=== PATIENT | male | born 1960 | race Caucasian/White ===

== ENCOUNTER 2016-07-21 01:50 | Emergency (ER) | payer OTHER ==
[~2016-07-21] VITALS: Ht 162.6 cm; Wt 63.0 kg
[~2016-07-21 01:50] MED LIST: FLEXERIL10 MG PO; IBUPROFEN600 MG PO; ULTRAM50 MG PO; no home med
[2016-07-21] MEDS ORDERED: NAPROSYN500 MG PO (02:31)
[2016-07-21 02:40] VITALS: BP 138/78
== END 2016-07-21 02:42 | disposition home or self-care (01) ==
LOC: EME 01:50 → EXP 01:50
PROC: 3E0234Z Introduction of Serum, Toxoid and Vaccine into Muscle, Percutaneous Approach (ICD-10-PCS; principal; 2016-07-21)
DX: S60.051A Contusion of right little finger without damage to nail, initial encounter (principal); W23.0XXA Caught, crushed, jammed, or pinched between moving objects, initial encounter; S60.512A Abrasion of left hand, initial encounter; S60.511A Abrasion of right hand, initial encounter; W45.8XXA Other foreign body or object entering through skin, initial encounter; F17.200 Nicotine dependence, unspecified, uncomplicated
CPT/HCPCS: 73140; 99281; 99284

== ENCOUNTER 2017-02-24 20:10 | Inpatient (IN) | payer OTHER ==
[~2017-02-24] VITALS: Ht 162.6 cm; Wt 52.5 kg
[~2017-02-24 20:10] MED LIST changes: +NAPROSYN500 MG PO
[2017-02-24 20:37] LABS: HEMATOCRIT 40.6 % (38.0-50.0); HEMOGLOBIN 14.7 G/DL (12.5-16.6); MCH 31.8 PG (29.0-34.0); MCHC 36.2 G/DL (30.0-36.0); MCV 87.9 FL (86-99); PLATELET COUNT 123 K/uL (156-360); RBC DIS.WIDTH-CV 12.5 % (11.8-14.6); RBC DIS.WIDTH-SD 39.8 % (39-53); RED BLOOD COUNT 4.62 M/uL (4.00-5.50); WHITE BLOOD COUNT 12.8 K/uL (4.1-10.2)
[2017-02-24 20:45] LABS: ALBUMIN 4.6 g/dL (3.2-4.8); CHLORIDE 96 mEq/L (99-109); POTASSIUM 4.1 mEq/L (3.7-5.4); SODIUM 137 mEq/L (136-147)
[2017-02-24 20:47] LABS: GLUCOSE 158 mg/dL (70-99)
[2017-02-24 20:48] LABS: TOTAL PROTEIN 7.9 g/dL (6.4-8.3)
[2017-02-24 20:49] LABS: TOTAL BILIRUBIN 1.9 mg/dL (0.0-1.0)
[2017-02-24 20:50] LABS: SERUM ETHYL ALCOHOL < 10 mg/dL
[2017-02-24 20:51] LABS: ALKALINE PHOSPHATASE 100 IU/L (3-129); GFR ESTIMATE (CALCULATED) > 59 mL/min/ (58.99-99999)
[2017-02-24 20:52] LABS: UREA NITROGEN (BUN) 18 mg/dL (9-23)
[2017-02-24 20:53] LABS: AST (GOT) 219 IU/L (2-34)
[2017-02-24 20:54] LABS: ALT (GPT) 255 IU/L (3-49)
[2017-02-24 22:31] LABS: LIPASE 44 U/L (1.0-51.0)
[2017-02-24 23:02] LABS: PTT 25.5 SEC (25-37)
[2017-02-25 02:47] VITALS: BP 182/94
[2017-02-25 04:00] VITALS: BP 172/79
[2017-02-25 05:34] LABS: APPEARANCE CLEAR ((CLEAR)); BILIRUBIN NEGATIVE; BLOOD MODERATE; COLOR YELLOW ((YELLOW)); GLUCOSE (STRIP) NEGATIVE; KETONES 80; LEUKOCYTES NEGATIVE; NITRITE NEGATIVE; PROTEIN (STRIP) 100; UROBILINOGEN 0.2 MG/DL (0.2-1.0)
[2017-02-25 06:04] LABS: SPECIFIC GRAVITY 1.067 (1.000-1.030)
[2017-02-25 06:06] LABS: BACTERIA NONE SEEN /HPF; EPITHELIAL CELLS RARE /HPF; MUCUS TRACE /LPF; RED BLOOD CELLS 0-5 /HPF (0-5); UCUL ADDED? NO; WHITE BLOOD CELLS 0-5 /HPF (0-5)
[2017-02-25 06:43] LABS: HEMATOCRIT 35.2 % (38.0-50.0); MCH 31.4 PG (29.0-34.0); MCHC 34.7 G/DL (30.0-36.0); MCV 90.5 FL (86-99); PLATELET COUNT 98 K/uL (156-360); RBC DIS.WIDTH-CV 12.7 % (11.8-14.6); RBC DIS.WIDTH-SD 42.3 % (39-53); RED BLOOD COUNT 3.89 M/uL (4.00-5.50); WHITE BLOOD COUNT 11.5 K/uL (4.1-10.2)
[2017-02-25 06:46] LABS: HEMOGLOBIN 12.2 G/DL (12.5-16.6)
[2017-02-25 07:01] VITALS: BP 165/79
[2017-02-25 08:21] LABS: ALBUMIN 3.8 G/DL (3.2-4.8); CHLORIDE 107 MEQ/L (99-109); POTASSIUM 3.9 MEQ/L (3.7-5.4); TOTAL BILIRUBIN 1.4 MG/DL (0.0-1.0)
[2017-02-25 08:22] LABS: SODIUM 144 MEQ/L (136-147)
[2017-02-25 08:27] LABS: ALKALINE PHOSPHATASE 74 IU/L (3-129); ALT (GPT) 236 IU/L (3-49); AST (GOT) 302 IU/L (2-34); CREATININE 0.8 MG/DL (0.6-1.3); GFR ESTIMATE (CALCULATED) > 59 mL/min/ (58.99-99999); GLUCOSE 99 mg/dL (70-99); TOTAL PROTEIN 5.8 G/DL (6.4-8.3); UREA NITROGEN (BUN) 16 mg/dL (9-23)
[2017-02-25 10:30] LABS: ANTI-HEPATITIS A VIRUS (IGM) Nonreactive; HEPATITIS B SURFACE ANTIGEN Nonreactive; HEPATITIS C ANTIBODY Nonreactive
[2017-02-25 10:32] LABS: ANTI-HEPATITIS B CORE (IGM) Nonreactive
[2017-02-25 11:08] VITALS: BP 154/73
[2017-02-25 11:49] LABS: TROP-I INTERPRETATION NEGATIVE; TROPONIN-I 0.21 ng/mL (0.0-0.30)
[2017-02-25 15:12] VITALS: BP 161/80
[2017-02-25 19:37] VITALS: BP 144/72
[2017-02-26] VITALS (7 sets, daily range): BP systolic 133–171; BP diastolic 67–81
[2017-02-26 03:03] LABS: HEMOGLOBIN 11.6 G/DL (12.5-16.6); MCH 31.9 PG (29.0-34.0); MCHC 35.2 G/DL (30.0-36.0); MCV 90.7 FL (86-99); RBC DIS.WIDTH-SD 43.2 % (39-53); RED BLOOD COUNT 3.64 M/uL (4.00-5.50); WHITE BLOOD COUNT 17.4 K/uL (4.1-10.2)
[2017-02-26 03:20] LABS: CHLORIDE 100 mEq/L (99-109); POTASSIUM 3.6 mEq/L (3.7-5.4)
[2017-02-26 03:21] LABS: SODIUM 132 mEq/L (136-147)
[2017-02-26 03:22] LABS: GLUCOSE 78 mg/dL (70-99)
[2017-02-26 03:26] LABS: CREATININE 0.6 mg/dL (0.6-1.3); GFR ESTIMATE (CALCULATED) > 59 mL/min/ (58.99-99999)
[2017-02-26 03:27] LABS: UREA NITROGEN (BUN) 12 mg/dL (9-23)
[2017-02-26 04:07] LABS: HEMATOLOGY COMMENT 1 SN; PLAT.SUFFICIENCY DECREASED; PLATELET COUNT UNABLE TO REPORT K/uL (156-360)
[2017-02-26 04:22] LABS: HDL CHOLESTEROL 66 MG/DL (Desirable>=40); LDL CHOLESTEROL 61 mg/dL (Desirable<100); NON-HDL CHOLESTEROL 78 mg/dL (Desirable<160); TOTAL CHOLESTEROL 144 mg/dL (Desirable<200); TRIGLYCERIDES 84 MG/DL (Normal: <150)
[2017-02-26 07:12] LABS: Estimated Average Glucose 103 mg/dL (70-123); HEMOGLOBIN A1c (GLYCOHEMOGLOB) 5.2 % HGB (Below 5.7)
[2017-02-26 08:47] LABS: HEMATOCRIT 33.3 % (38.0-50.0); HEMOGLOBIN 11.1 G/DL (12.5-16.6); MCH 30.5 PG (29.0-34.0); MCHC 33.3 G/DL (30.0-36.0); MCV 91.5 FL (86-99); RBC DIS.WIDTH-SD 43.6 % (39-53); RED BLOOD COUNT 3.64 M/uL (4.00-5.50)
[2017-02-26 08:53] LABS: PLATELET COUNT 56 K/uL (156-360)
[2017-02-27 07:22] LABS: HEMATOCRIT 30.7 % (38.0-50.0); HEMOGLOBIN 10.6 G/DL (12.5-16.6); MCH 31.3 PG (29.0-34.0); MCHC 34.5 G/DL (30.0-36.0); MCV 90.6 FL (86-99); RBC DIS.WIDTH-CV 12.7 % (11.8-14.6); RBC DIS.WIDTH-SD 41.8 % (39-53); RED BLOOD COUNT 3.39 M/uL (4.00-5.50); WHITE BLOOD COUNT 11.8 K/uL (4.1-10.2)
[2017-02-27 07:49] LABS: IMM.PLATELET FRACTION 7.8 (1-7); PLAT.SUFFICIENCY VERY DECREASED; PLATELET COUNT 42 K/uL (156-360)
[2017-02-27 07:52] LABS: CHLORIDE 99 MEQ/L (99-109); CREATININE 0.6 MG/DL (0.6-1.3); GFR ESTIMATE (CALCULATED) > 59 mL/min/ (58.99-99999); GLUCOSE 82 mg/dL (70-99); POTASSIUM 3.3 MEQ/L (3.7-5.4); SODIUM 136 MEQ/L (136-147); UREA NITROGEN (BUN) 8 mg/dL (9-23)
[2017-02-27 08:03] VITALS: BP 186/98
[2017-02-27 13:07] LABS: Heparin Induced Plt Ab Negative (Negative)
[2017-02-27] MEDS ORDERED: ASPIR-LOW81 MG PO (14:28)
[2017-02-27] MEDS ORDERED: TYLENOL REGULA325 MG PO (14:28)
[2017-02-27] MEDS ORDERED: PERCOCET 5/31 TABLET PO (14:28)
[2017-02-27] MEDS ORDERED: ZOFRAN4 MG PO (14:29)
[2017-02-27] MEDS ORDERED: PANTOPRAZOLE SO40 MG PO (14:29)
[2017-02-27] MEDS ORDERED: COLACE100 MG PO (14:30)
[2017-02-27 15:50] VITALS: BP 129/70
[2017-02-27 16:38] LABS: UFH SRA Result Negative (Negative)
[2017-03-04 18:04] LABS: ACTIVATED PROTEIN C RESIST+ 4.9 ratio (>=2.1); ANTITHROMBIN III ACTIVITY+ 55 (80-120); DRVVT Mixing Study Interp Not Indicated (()); FACTOR VIII ACTIVITY+ 253 % (50-180); PROTEIN C FUNCTIONAL ACTIVITY+ 48 % (70-180); PTT-LA 99 sec (<=40); Protein S, Free 138 % normal (57-171); Thrombosis Consult Level Limited (()); dRVVT Screen 33 sec (<=45)
== END 2017-02-27 18:15 | disposition home or self-care (01) | DRG 699 ==
LOC: EME 20:10 → EDOF 02-25 00:57 → 5SOUTH 02-25 00:57 → ENRESERV 02-25 01:08 → 5SOUTH 02-25 02:39
PROVIDERS: Emergency Medicine; Hospitalist; Internal Medicine; Internal Medicine Hematology & Oncology; Physician Assistant Medical
DX: N28.0 Ischemia and infarction of kidney (principal); I74.9 Embolism and thrombosis of unspecified artery; F10.20 Alcohol dependence, uncomplicated; D69.59 Other secondary thrombocytopenia; E87.2 Acidosis; E83.39 Other disorders of phosphorus metabolism; F17.200 Nicotine dependence, unspecified, uncomplicated; Z68.1 Body mass index [BMI] 19.9 or less, adult; J98.11 Atelectasis; E87.1 Hypo-osmolality and hyponatremia; E87.6 Hypokalemia; I73.9 Peripheral vascular disease, unspecified; Z80.3 Family history of malignant neoplasm of breast; Z82.49 Family history of ischemic heart disease and other diseases of the circulatory system; Z90.49 Acquired absence of other specified parts of digestive tract
CPT/HCPCS: 71045; 74177; 80048; 80053; 80061; 80074; 81003; 81240 90; 83036; 83090 90; 83690; 84484; 85027; 85240 90; 85300 90; 85303 90; 85305 90; 85306 90; 85610; 85613 90; 85730; 85730 90; 86022 90; 86146 90; 86147 90; 99281; 99284; G0480; J1170; J2270; J2405; J7030

== ENCOUNTER 2017-10-09 12:15 | Emergency (ER) | payer OTHER ==
[~2017-10-09] VITALS: Ht 162.6 cm; Wt 56.3 kg
[~2017-10-09 12:15] MED LIST changes: +ASPIR-LOW81 MG PO; +COLACE100 MG PO; +PANTOPRAZOLE SO40 MG PO; +PERCOCET 5/31 TABLET PO; +TYLENOL REGULA325 MG PO; +ZOFRAN4 MG PO
[2017-10-09 18:30] VITALS: BP 168/97
== END 2017-10-09 18:37 | disposition home or self-care (01) ==
LOC: RME 12:15 → EME 12:15 → RME 18:37
PROC: 0H9EXZZ Drainage of Left Lower Arm Skin, External Approach (ICD-10-PCS; principal; 2017-10-09)
DX: M67.432 Ganglion, left wrist (principal); M25.532 Pain in left wrist
CPT/HCPCS: 73090; 93971; 99281; 99284

== ENCOUNTER 2017-10-12 16:15 | Emergency (ER) | payer OTHER ==
[~2017-10-12] VITALS: Ht 162.6 cm; Wt 55.3 kg
[2017-10-12 17:21] LABS: HEMATOCRIT 33.7 % (38.0-50.0); HEMOGLOBIN 11.8 G/DL (12.5-16.6); MCH 31.6 PG (29.0-34.0); MCV 90.1 FL (86-99); PLATELET COUNT 206 K/uL (156-360); RBC DIS.WIDTH-SD 42.9 % (39-53); RED BLOOD COUNT 3.74 M/uL (4.00-5.50); WHITE BLOOD COUNT 8.3 K/uL (4.1-10.2)
[2017-10-12 17:28] LABS: PTT 56.3 SEC (25-37)
[2017-10-12 17:30] LABS: CHLORIDE 105 mEq/L (99-109); POTASSIUM 4.3 mEq/L (3.7-5.4); SODIUM 142 mEq/L (136-147)
[2017-10-12 17:30] LABS: INTER. NORMALIZED RATIO 4.3
[2017-10-12 17:31] LABS: GLUCOSE 118 mg/dL (70-99)
[2017-10-12 17:35] LABS: CREATININE 0.8 mg/dL (0.6-1.3); GFR ESTIMATE (CALCULATED) > 59 mL/min/ (58.99-99999)
[2017-10-12 17:36] LABS: UREA NITROGEN (BUN) 13 mg/dL (9-23)
[2017-10-12] MEDS ORDERED: COUMADIN3 MG PO (20:41)
[2017-10-12 20:56] VITALS: BP 149/80
== END 2017-10-12 20:56 | disposition home or self-care (01) ==
LOC: EME 16:15
DX: M70.21 Olecranon bursitis, right elbow (principal); S40.021A Contusion of right upper arm, initial encounter; X58.XXXA Exposure to other specified factors, initial encounter; Z79.01 Long term (current) use of anticoagulants; Z86.718 Personal history of other venous thrombosis and embolism; F17.200 Nicotine dependence, unspecified, uncomplicated
CPT/HCPCS: 73080; 80048; 85027; 85610; 85730; 93971; 99281; 99284